=== PATIENT | male | born 1960 | race Two or more races ===

== ENCOUNTER 2024-12-30 05:36 | Emergency (ER) | payer MEDICAID, SELFPAY ==
[2024-12-30 05:37] VITALS: BMI 24.1
[2024-12-30 06:08] VITALS: BP 155/74; PULSE 74; RESP 16; TEMP 36.7; O2SAT 97
--- NOTE | 2024-12-30 06:16 | EDNOTE_ITS ---
Lower Extremity Injury RME/HPI General Chief Complaint: Extremity Injury, Lower Stated Complaint: LEFT LEG PAIN Time Seen by Provider: 12/30/24 06:12 Source: patient Arrival date/time: 12/30/24 05:36 64-year-old male with a history of hypertension and hyperlipidemia presents to the emergency room with a chief complaint of a shooting pain that begins in his left hip and radiates down his left leg x 1 week Mode of arrival: ambulatory Limitations: no limitations Related Data Home Medications ?Medication ?Instructions ?Recorded ?Confirmed atorvastatin 40 mg tablet 40 mg PO QDAY 10/19/2303/10 clonidine HCl 0.3 mg tablet 0.3 mg PO BID 10/19/23 furosemide 40 mg tablet 40 mg PO QDAY 10/19/2303/10 hydralazine 50 mg tablet 50 mg PO TID 10/19/23 insulin NPH isoph U-100 human 100 See Rx Instructions .Route .COMPLEX 10/19/23 10/19/23 unit/mL subcutaneous suspension (Novolin N NPH U-100 Insulin isophane) insulin glargine 100 unit/mL (3 7 unit subcut QDAY 10/19/23 mL) subcutaneous pen (Lantus Solostar U-100 Insulin) insulin lispro 100 unit/mL See Rx Instructions .Route .COMPLEX 10/19/23 10/19/23 subcutaneous pen (Admelog SoloStar U-100 Insulin lispro) semaglutide 0.25 mg or 0.5 mg (2 0.25 mg subcut QWEEK 10/19/23 10/19/23 mg/3 mL) subcutaneous pen injector (Ozempic) sodium bicarbonate 650 mg tablet 1,300 mg PO BID 10/1910/19/23 docusate sodium 100 mg capsule 100 mg PO BID 03/10/24 ferrous sulfate 325 mg (65 mg 325 mg PO QDAY 03/10/24 03/10/24 iron) tablet sitagliptin phosphate 100 mg 100 mg PO QDAY 03/10/24 0 03/10/24 tablet (Januvia) Previous Rx's ?Medication ?Instructions ?Recorded amlodipine 10 mg tablet 10 mg PO QDAY #30 tabs 01/21 blood sugar diagnostic (Blood #100 ea 01/22/20 Glucose Test strips) blood-glucose meter (Blood Glucose #1 ea 01/22/20 Monitoring kit) lancets 28 gauge (FreeStyle #100 ea 01/22/20 Lancets) pen needle, diabetic 29 gauge x #100 ea 01/22/20 1 (Comfort EZ Pen [place]) Allergies Allergy/AdvReac Type Severity Reaction Status Date / Time No Known Allergies Allergy Verified 03/16/24 06:28 Review of Systems Review of Systems Systems Reviewed: All systems reviewed, normal except as documented Constitutional Constitutional: Reports system reviewed and no additional complaints, except as documented, Denies fatigue, Denies fever(s), Denies headache(s) and Denies weakness Eyes Eyes: Reports system reviewed and no additional complaints, except as documented, Denies blurry vision and Denies change in vision ENT Ears, Nose, Mouth, and Throat: Reports system reviewed and no additional complaints, except as documented, Denies otalgia, Denies headache(s), Denies nasal congestion, Denies throat swelling and Denies vertigo Cardiovascular Cardiovascular: Reports system reviewed and no additional complaints, except as documented, Denies chest pain, Denies dyspnea and Denies dyspnea on exertion Respiratory Respiratory: Reports system reviewed and no additional complaints, except as documented, Denies chest congestion, Denies cough, Denies dyspnea, Denies dy spnea on exertion and Denies wheezing Gastrointestinal Gastrointestinal: Reports system reviewed and no additional complaints, except as documented, Denies abdominal pain, Denies cramping, Denies nausea and Denies vomiting Genitourinary Genitourinary: Reports system reviewed and no additional complaints, except as documented, Denies dysuria and Denies hematuria Musculoskeletal Musculoskeletal: Reports system reviewed and no additional complaints, except as documented and Reports radiating pain into limb Integumentary/Breasts Skin/Breast: Reports system reviewed and no additional complaints, except as documented and Denies wounds Neurologic Neurologic: Reports system reviewed and no additional complaints, except as documented, Denies confusion, Denies headache(s), Denies lack of coordination, Denies vertigo and Denies weakness Psychiatric Psychiatric: Reports system reviewed and no additional complaints, except as documented, Denies anxiety, Denies confusion, Denies depression, Denies paranoia, Denies suicidal ideation and Denies tactile hallucinations Endocrine Endocrine: Reports system reviewed and no additional complaints, except as documented and Denies fatigue Hematologic/Lymphatic Hematologic/Lymphatic: Reports system reviewed and no additional complaints, except as documented and Denies lymphadenopathy Allergic/Immunologic Allergic/Immunologic: Reports system reviewed and no additional complaints, except as documented, Denies throat swelling, Denies urticaria and Denies wheezing Past Medical History Past Medical History NEUROLOGIC: Positive Neurological Disorders, Cerebrovascular Accident and Meningitis; Negative Seizures CARDIAC: Positive Cardiac Disorders, Hypercholesterolemia and Hypertension; Negative Congestive Heart Failure RESPIRATORY: Positive Pneumonia (in past); Negative Chronic Obstructive Pulmonary Disease (COPD) or Asthma GASTROINTESTINAL: Negative Gastrointestinal Disorders GENITOURINARY: Positive Genitourinary Disorders and Renal Disease; Negative Kidney Stones, Dialysis or Benign Prostatic Hyperplasia MUSCULOSKELETAL: Negative Musculoskeletal Disorders (right hand pain/shoulder pain) ENT: Positive Cataracts ENDOCRINE: Positive Endocrine Disorders and Diabetes Mellitus Type 2; Negative Diabetes Mellitus Type 1 HEMATOLOGIC: Positive Blood Disorders and Anemia; Negative Sickle Cell Disease OTHER HISTORY: Negative Autoimmune Disease, Blood Transfusions, Blood Transfusion Reaction, Anesthesia Reactions or Cancer Family History FAMILY HISTORY: Positive Family Cancer and Family Surgery; Negative Family Psychiatric Problems, Family Respiratory Disorders, Family Cardiac Disorders, Family Gastrointestinal Problems or Family Anesthesia Reaction Surgical History SURGICAL: Negative Cardiac Surgery, Pacemaker, Endocrine Surgery, Abdominal Surgery or Joint Replacement Social History SMOKING STATUS: Current some day smoker ED Exam General Limitations: Present no limitations General appearance: Present alert and in no apparent distress Head Head exam: Present atraumatic Eye Eye exam: Present normal appearance, PERRL and EOMI ENT ENT exam: Present normal exam, normal oropharynx and mucous membranes moist Neck Neck exam: Present normal inspection, full ROM and trachea midline Chest Chest inspection: Present normal inspection and symmetric chest wall rise Respiratory Respiratory exam: Present normal lung sounds bilaterally Cardiovascular Cardiovascular exam: Present regular rate, normal rhythm and normal heart sounds Abdominal Exam Abdominal exam: Present soft and normal bowel sounds Extremities Exam Extremities exam: Present normal inspection and full ROM Back Exam Back exam: Present normal inspection and full ROM Neurological Exam Neurological exam: Present alert, oriented X3 and CN II-XII intact Psychiatric Psychiatric exam: Present normal affect and normal mood Skin Skin exam: Present warm, dry, intact and normal color Course Quality Measures none Orders Category Date Time Status Ketorolac Inj [Toradol Inj] Med 12/30/24 06:16 Discontinued 30 mg IM X1 ONE Vital Signs Vital signs: Vital Signs Temperature 98.0 F 12/30/24 06:08 Pulse Rate 74 12/30/24 06:08 Respiratory Rate 16 12/30/24 06:08 Blood Pressure 155/74 H 12/30/24 06:08 Pulse Oximetry (%) 97 12/30/24 06:08 Oxygen Delivery Method Room Air 12/30/24 06:08 O2 saturation 97% within normal limits Extremity Injury, Lower MDM Narrative MDM Narrative:: 64-year-old male with a history of hypertension and hyperlipidemia presents to the emergency room with a chief complaint of a shooting pain that begins in his left hip and radiates down his left leg x 1 week Patient is hemodynamically stable and in no apparent distress Physical examination shows left-sided sciatic notch tenderness with pain that ra diates down his left leg to above his knee. The patient denies any numbness to the lower extremities. He has a normal steady gait. The patient denies any saddle anesthesia or any loss of bowel or bladder function. Patient states he has a history of sciatica and states his primary care provider sent him to physical therapy but that has not been working. Pain medication was given to the patient with significant improvement in his symptoms Patient was educated that he needs to keep following up with his primary care provider for possible referral to a chiropractor and if symptoms continue then a transportation maintenance specialist Patient was discharged and educated to follow-up with his primary care provider and return to the emergency room for any evidence of worsening signs or symptoms Patient data External records reviewed:: [facility] previous records Clinical information provided by:: patient Social determinants that could affect healthcare access:: none Patient has the following chronic illnesses:: No chronic illness How is presenting disease/condition affected by chronic disease/condition?: no chronic disease Evaluation data The following diagnostics were reviewed and interpreted by me:: lab results and radiology exam(s) Lab and/or radiology exams considered but not ordered:: Labs and radiology exams considered and ordered Interpretation Summary: N/A Medications / Prescriptions Medications or Prescriptions considered but not ordered:: Medication given Medication administrations:: Medication Administration History Discontinued Medications Ketorolac Tromethamine (Ketorolac Inj 60 Mg/2 Ml Vial) 30 mg IM X1 ONE Stop: 12/30/24 06:17 Last Admin: 12/30/24 06:37 Dose: 30 mg Documented By: PINOR Medication given Consultations Consultation(s) initiated? (list below): No Diagnosis Extremity Injury, Lower Differential Diagnosis: other (Sciatica/hip contusion/lumbar back pain) Most likely diagnosis given after review of the tests above:: Sciatica Admission Indicated Admission indicated?: not indicated Admission Request Was there a request for admission?: No Disposition Plan Disposition Plan: Discharge Discharge Attestation Discharge Attestation: The patient and all family members were given an opportunity to ask questions and understood the discharge instructions. Discharge instructions specifically effects, indications for sooner follow up or return to the emergency department, and the expected course of current diagnosis. Patient condition: Stable Discharge Plan Plan Patient Disposition: HOME (Self Care) Disposition Comment: Stable Prescriptions/Referrals Prescriptions/Med Rec: No Action amlodipine 10 mg tablet 10 mg PO QDAY Qty: 30 0RF (DME) Blood Glucose Test strip See Dose Instructions .ROUTE .MEDSUPPLY Qty: 100 0RF Dose Instruction: As directed Rx Instructions: As directed test BS 3 times a day (DME) blood-glucose meter [Blood Glucose Monitoring] kit See Dose Instructions .ROUTE .MEDSUPPLY Qty: 1 0RF Dose Instruction: As directed Rx Instructions: As directed test BS 3 times a day (DME) lancets [FreeStyle Lancets] 28 gauge misc See Dose Instructions .ROUTE .MEDSUPPLY Qty: 100 0RF Dose Instruction: As directed Rx Instructions: As directed test BS 3 times a day (DME) pen needle, diabetic [Comfort EZ Pen [place]] 29 gauge x 1/2 needle See Dose Instructions .ROUTE .MEDSUPPLY Qty: 100 0RF Dose Instruction: As directed Rx Instructions: As directed test BS 3 times a day furosemide 40 mg tablet 40 mg PO QDAY Patient Comments: TAKE 1 TABLET BY MOUTH EVERY DAY FOR 30 DAYS atorvastatin 40 mg tablet 40 mg PO QDAY Patient Comments: TAKE 1 TABLET BY MOUTH EVERY DAY FOR 30 DAYS clonidine HCl 0.3 mg tablet 0.3 mg PO BID Patient Comments: TAKE 1 TABLET BY MOUTH 2 TIMES PER DAY sodium bicarbonate 650 mg tablet 1,300 mg PO BID Patient Comments: TAKE 2 TABLETS BY MOUTH TWICE A DAY hydralazine 50 mg tablet 50 mg PO TID Patient Comments: TAKE 1 TABLET BY MOUTH THREE TIMES A DAY WITH FOOD Ozempic 0.25 mg or 0.5 mg (2 mg/3 mL) pen injector 0.25 mg SUBCUT QWEEK Patient Comments: INJECT 0.25MG SUBCUTANEOUS 1 TIME A WEEK FOR 4 WEEKS AND THEN INCREASED TO 0.5 MG WEEKLY Novolin N NPH U-100 Insulin 100 unit/mL suspension See Rx Instructions .ROUTE .COMPLEX Rx Instructions: sliding scale insulin lispro [Admelog SoloStar U-100 Insulin] 100 unit/mL insulin pen See Rx Instructions .ROUTE .COMPLEX Patient Comments: PLEASE SEE ATTACHED FOR DETAILED DIRECTIONS Rx Instructions: sliding scale before eating insulin glargine [Lantus Solostar U-100 Insulin] 100 unit/mL (3 mL) insulin pen 7 unit SC QDAY Rx Instructions: if blood glucose is above 200 ferrous sulfate 325 mg (65 mg iron) Tablet 325 mg PO QDAY docusate sodium 100 mg Capsule 100 mg PO BID Januvia 100 mg Tablet 100 mg PO QDAY Problem List Clinical Impression: Sciatica of left side Patient/Caregiver Discharge Instructions Education Materials: Anatomy of a Normal Spine, ED Sciatica Additional Instructions: Alissa un seguimiento con sierra proveedor de atenci?n primaria en las pr?ximas 24 a 48 horas. Kayla derivaci?n a un fisioterapeuta quiropr?ctico puede ayudarle con sierra dolor ci?logan. Necesitar? que sierra proveedor de atenci?n primaria le env?e esta remisi?n. El medicamento fue enviado a sierra farmacia por favor rec?jalo y t?adan bulmaro se indica. Ante cualquier evidencia de empeoramiento de los signos o s?ntomas, regrese a la mariana de emergencias de inmediato. Print Language: Turkish Stand Alone Forms: [facility] Award Info., Patient Portal Info Letter PA/CONCHE LOADER AND UNLOADER Supervising Physician PA/CONCHE LOADER AND UNLOADER Supervising Physician: Dr. Langley
[2024-12-30] MEDS: KETOROLAC INJ 60 MG/2 ML VIAL 30 MG IM (06:37)
== END 2024-12-30 06:40 | disposition home or self-care (01) ==
LOC: SERX 06:28
PROVIDERS: Emergency Provider Emergency Medicine; PCP Nurse Practitioner Family
DX: M54.32 Sciatica, left side (principal); E78.5 Hyperlipidemia, unspecified; I10 Essential (primary) hypertension
CPT/HCPCS: 96372; 99283; J1885

== ENCOUNTER 2025-08-12 17:21 | Emergency (ER) | payer MEDICAID, SELFPAY ==
[2025-08-12 17:36] VITALS: BP 140/68; PULSE 83; RESP 617; TEMP 37.2; O2SAT 97; BMI 25.4
--- NOTE | 2025-08-12 18:03 | PD.EDADULT ---
ED General RME/HPI General Chief complaint: Wound/Laceration Stated complaint: RIGHT HAND LACERATION YESTERDAY Time Seen by Provider: 08/12/25 17:49 Arrival date/time: 08/12/25 17:21 CC: 2-day-old laceration to the base of the right thumb HPI cut with a machete 2 days ago, has left it open. There is no surrounding erythema edema localized pain patient states last tetanus shot was 3 years ago no other complaints. Related Data Home Medications ?Medication ?Instructions ?Recorded ?Confirmed atorvastatin 40 mg tablet 40 mg PO QDAY 10/19/23 03/10/24 clonidine HCl 0.3 mg tablet 0.3 mg PO BID 10/19/23 03/10/24 furosemide 40 mg tablet 40 mg PO QDAY 10/19/23 03/10/24 hydralazine 50 mg tablet 50 mg PO TID 10/19/23 03/10/24 insulin NPH isoph U-100 human 100 See Rx Instructions .Route .COMPLEX 10/19/23 10/19/23 unit/mL subcutaneous suspension (Novolin N NPH U-100 Insulin isophane) insulin glargine 100 unit/mL (3 7 unit subcut QDAY 10/19/23 10/19/23 mL) subcutaneous pen (Lantus Solostar U-100 Insulin) insulin lispro 100 unit/mL See Rx Instructions .Route .COMPLEX 10/19/23 10/19/23 subcutaneous pen (Admelog SoloStar U-100 Insulin lispro) semaglutide 0.25 mg or 0.5 mg (2 0.25 mg subcut QWEEK 10/19/23 10/19/23 mg/3 mL) subcutaneous pen injector (Ozempic) sodium bicarbonate 650 mg tablet 1,300 mg PO BID 10/19/23 10/19/23 docusate sodium 100 mg capsule 100 mg PO BID 03/10/24 ferrous sulfate 325 mg (65 mg 325 mg PO QDAY 03/10/24 03/10/24 iron) tablet sitagliptin phosphate 100 mg 100 mg PO QDAY 03/10/24 03/10/24 tablet (Januvia) Previous Rx's ?Medication ?Instructions ?Recorded amlodipine 10 mg tablet 10 mg PO QDAY #30 tabs 01/22/20 blood sugar diagnostic (Blood #100 ea 03/27/20 Glucose Test strips) blood-glucose meter (Blood Glucose #1 ea 01/22/20 Monitoring kit) lancets 28 gauge (FreeStyle #100 ea 01/22/20 Lancets) pen needle, diabetic 29 gauge x #100 ea 01/22/20 1/2 (Comfort EZ Pen [place]) Allergies Allergy/AdvReac Type Severity Reaction Status Date / Time No Known Allergies Allergy Verified 08/12/25 17:24 Review of Systems Review of Systems Narrative Review of Systems: GEN: No fever, no chills, no weight loss EYES: No discharge, no visual changes, no pain HEENT: No ear pain, no congestion, no sore throat PULM: No shortness of breath, no cough, no congestion CV: No chest pain, no dyspnea on exertion, no palpitations GI: No nausea, no vomiting, no diarrhea, no pain, no constipation : No frequency, no urgency, no dysuria MUSC/SKEL: No joint pain, no back pain SKIN: No rash PSYCH: No hallucinations, no depression HEME/LYMPH: No easy bleeding or bruising tendencies NEURO: No weakness, no headache Past Medical History Past Medical History NEUROLOGIC: Positive Neurological Disorders, Cerebrovascular Accident and Meningitis; Negative Seizures CARDIAC: Positive Cardiac Disorders, Hypercholesterolemia and Hypertension; Negative Congestive Heart Failure RESPIRATORY: Positive Pneumonia (in past); Negative Chronic Obstructive Pulmonary Disease (COPD) or Asthma GASTROINTESTINAL: Negative Gastrointestinal Disorders GENITOURINARY: Positive Genitourinary Disorders and Renal Disease; Negative Kidney Stones, Dialysis or Benign Prostatic Hyperplasia MUSCULOSKELETAL: Negative Musculoskeletal Disorders (right hand pain/shoulder pain) ENT: Positive Cataracts ENDOCRINE: Positive Endocrine Disorders and Diabetes Mellitus Type 2; Negative Diabetes Mellitus Type 1 HEMATOLOGIC: Positive Blood Disorders and Anemia; Negative Sickle Cell Disease OTHER HISTORY: Negative Autoimmune Disease, Blood Transfusions, Blood Transfusion Reaction, Anesthesia Reactions or Cancer Family History FAMILY HISTORY: Positive Family Cancer and Family Surgery; Negative Family Psychiatric Problems, Family Respiratory Disorders, Family Cardiac Disorders, Family Gastrointestinal Problems or Family Anesthesia Reaction Surgical History SURGICAL: Negative Cardiac Surgery, Pacemaker, Endocrine Surgery, Abdominal Surgery or Joint Replacement Social History SMOKING STATUS: Light (< 1 pack/day) ED Exam Narrative Physical exam: [General: Not in any acute distress Head normocephalic HEENT: Within acceptable limits Neck is supple nontender Chest equal chest rise nontender to palpation Respiratory: Clear to auscultation no wheezes crackles or rubs CV: Rate rhythm is regular no murmurs rubs or clicks Abdomen is soft nontender no masses positive bowel sounds all 4 quadrants Back: No CVA tenderness no spinous process tenderness from cervical spine thoracic and lumbar spine Skin: Semilunar 6 cm full-thickness laceration to the thenar eminence of the right thumb. No surrounding erythema no edema full range of motion of the thumb against resistance. Otherwise skin is intact no petechiae rash induration ulceration or crepitus Extremities: Moving all extremity against resistance cap refill less than 2 seconds neurosensory intact Neuro: Awake alert oriented x3 Glascow coma 15 no focal deficits] Course Course Course Narrative: Laceration is 2 days old Quality Measures none Vital Signs Vital signs: Vital Signs Temperature 98.9 F 08/12/25 17:36 Pulse Rate 83 08/12/25 17:36 Respiratory Rate 617 H 08/12/25 17:36 Blood Pressure 140/68 H 08/12/25 17:36 Pulse Oximetry (%) 97 08/12/25 17:36 Oxygen Delivery Method Room Air 08/12/25 17:36 Discharge Plan Plan Patient Disposition: HOME (Self Care) Patient condition on transfer: Stable Prescriptions/Referrals Prescriptions/Med Rec: No Action amlodipine 10 mg tablet 10 mg PO QDAY Qty: 30 0RF (DME) Blood Glucose Test strip See Dose Instructions .ROUTE .MEDSUPPLY Qty: 100 0RF Dose Instruction: As directed Rx Instructions: As directed test BS 3 times a day (DME) blood-glucose meter [Blood Glucose Monitoring] kit See Dose Instructions .ROUTE .MEDSUPPLY Qty: 1 0RF Dose Instruction: As directed Rx Instructions: As directed test BS 3 times a day (DME) lancets [FreeStyle Lancets] 28 gauge misc See Dose Instructions .ROUTE .MEDSUPPLY Qty: 100 0RF Dose Instruction: As directed Rx Instructions: As directed test BS 3 times a day (DME) pen needle, diabetic [Comfort EZ Pen [place]] 29 gauge x 1/2 needle See Dose Instructions .ROUTE .MEDSUPPLY Qty: 100 0RF Dose Instruction: As directed Rx Instructions: As directed test BS 3 times a day furosemide 40 mg tablet 40 mg PO QDAY Patient Comments: TAKE 1 TABLET BY MOUTH EVERY DAY FOR 30 DAYS atorvastatin 40 mg tablet 40 mg PO QDAY Patient Comments: TAKE 1 TABLET BY MOUTH EVERY DAY FOR 30 DAYS clonidine HCl 0.3 mg tablet 0.3 mg PO BID Patient Comments: TAKE 1 TABLET BY MOUTH 2 TIMES PER DAY sodium bicarbonate 650 mg tablet 1,300 mg PO BID Patient Comments: TAKE 2 TABLETS BY MOUTH TWICE A DAY hydralazine 50 mg tablet 50 mg PO TID Patient Comments: TAKE 1 TABLET BY MOUTH THREE TIMES A DAY WITH FOOD Ozempic 0.25 mg or 0.5 mg (2 mg/3 mL) pen injector 0.25 mg SUBCUT QWEEK Patient Comments: INJECT 0.25MG SUBCUTANEOUS 1 TIME A WEEK FOR 4 WEEKS AND THEN INCREASED TO 0.5 MG WEEKLY Novolin N NPH U-100 Insulin 100 unit/mL suspension See Rx Instructions .ROUTE .COMPLEX Rx Instructions: sliding scale insulin lispro [Admelog SoloStar U-100 Insulin] 100 unit/mL insulin pen See Rx Instructions .ROUTE .COMPLEX Patient Comments: PLEASE SEE ATTACHED FOR DETAILED DIRECTIONS Rx Instructions: sliding scale before eating insulin glargine [Lantus Solostar U-100 Insulin] 100 unit/mL (3 mL) insulin pen 7 unit SC QDAY Rx Instructions: if blood glucose is above 200 ferrous sulfate 325 mg (65 mg iron) Tablet 325 mg PO QDAY docusate sodium 100 mg Capsule 100 mg PO BID Januvia 100 mg Tablet 100 mg PO QDAY Problem List Clinical Impression: Hand laceration Patient/Caregiver Discharge Instructions Education Materials: ED Laceration, Old: Not Sutured Print Language: Azerbaijani Stand Alone Forms: [facility] Award Info., Patient Portal Info Letter, Work/School Release PA/WAITER/WAITRESS HEAD Supervising Physician PA/WAITER/WAITRESS HEAD Supervising Physician: Ray Cruz ENP
== END 2025-08-12 18:28 | disposition home or self-care (01) ==
LOC: SERX 18:15
PROVIDERS: Emergency Provider Emergency Medicine; PCP Nurse Practitioner Family
DX: S61.411A Laceration without foreign body of right hand, initial encounter (principal); Z95.0 Presence of cardiac pacemaker; W26.0XXA Contact with knife, initial encounter
CPT/HCPCS: 99283